=== PATIENT | female | born 1950 | race Caucasian/White ===

== ENCOUNTER 2018-12-03 13:36 | Emergency (ER) | payer OTHER, MEDICARE ==
[2018-12-03] MEDS ORDERED: NS 1,000 ML IV ONE (13:42)
[2018-12-03 13:49] LABS: PLATELET COUNT 238 10^3/uL (150-400)
--- NOTE | 2018-12-03 14:03 | EDPHY ---
H & P Time Seen by Provider: 12/03/18 14:01 HPI/ROS: CHIEF COMPLAINT: Presyncope HISTORY OF PRESENT ILLNESS: The patient is brought to the emergency department with a sensation of presyncope. She reportedly was at [employer] today and was becoming anxious and somewhat agitated. She reports that she did not have much to eat or drink. She has a history of subjective "hypoglycemia" and reported this to fellow [employer] goers. She was given some apple juice prior to transport to the hospital. The patient was noted to have a normal blood sugar by EMS. The patient has a history of a thoracic aortic aneurysm which is stable in being followed. The patient denies any complaints of acute intrascapular pain. She does feel slightly anxious. The patient has sensitivities to multiple antibiotics. She is also very sensitive to benzodiazepines. The patient denies any headache, numbness, fever, cough, congestion or infectious complaints. REVIEW OF SYSTEMS: A comprehensive 10 point review of systems is otherwise negative aside from elements mentioned in the history of present illness. Source: Patient Exam Limitations: No limitations - Medical/Surgical History Other PMH: Past medical history: Thoracic aortic aneurysm, anxiety, CVID - Family History Significant Family History: No pertinent family hx - Physical Exam Exam: General Appearance: Alert, anxious, no acute distress Eyes: Pupils equal and round no pallor or injection ENT, Mouth: Mucous membranes moist Respiratory: There are no retractions, lungs are clear to auscultation Cardiovascular: Regular rate and rhythm Gastrointestinal: Abdomen is soft and nontender, no masses, bowel sounds normal Neurological: A&O, normal motor function, normal sensory exam, normal cranial nerves Skin: Warm and dry, no rashes Musculoskeletal: Neck is supple nontender Extremities: symmetrical, full range of motion Constitutional: Initial Vital Signs Temperature (C) 36.6 C 12/03/18 13:47 Heart Rate 65 12/03/18 13:47 Respiratory Rate 41 H 12/03/18 13:47 Blood Pressure 189/117 H 12/03/18 13:47 O2 Sat (%) 100 12/03/18 13:47 O2 Delivery Mode Room Air Allergies/Adverse Reactions: fluoxetine [From Prozac] Allergy (Verified 12/03/18 14:03) Penicillins Allergy (Verified 12/03/18 14:03) ciprofloxacin Adverse Reaction (Verified 12/03/18 14:03) diphenhydramine [From Benadryl] Adverse Reaction (Verified 12/03/18 14:03) envrionmental Allergy (Uncoded 12/03/18 14:03) narcotics Adverse Reaction (Uncoded 12/03/18 14:03) Home Medications: Medication Instructions Recorded Albuterol 12/03/18 Ativan 12/03/18 Gabapentin 12/03/18 PRISTIQ 12/03/18 Privigen 10 gm/100 ml (*) 12/03/18 Spiriva Handihaler 12/03/18 Medical Decision Making - Diagnostics EKG Interpretation: EKG: Complete interpretation has been separately recorded in the [facility] archive. Summary impression: Sinus rhythm, rate 58 ED Course/Re-evaluation: ED course: Patient arrives by paramedics with stable vital signs after an episode of presyncope. She is noted to be neurologically intact upon arrival. The patient has stable vital signs. Her EKG demonstrates no evidence of arrhythmia. The patient had an IV established. She received a L of normal saline. Patient's laboratory studies are unremarkable. Troponin is normal. She has no evidence of a metabolic derangement. The patient will be discharged home at 2:30 p.m.. She is advised to follow up with her primary care provider as scheduled. She should return to the ED for any chest pain, difficulty breathing or other concerns. Differential Diagnosis: Differential diagnosis considered includes arrhythmia, anemia, dehydration, metabolic abnormality, acute coronary syndrome - Data Points Laboratory Results: Laboratory Results 12/03/18 13:44 12/03/18 13:44 12/03/18 12/03/18 12/03/18 13:49 13:44 13:44 WBC 7.38 10^3/uL 10^3/uL (3.80-9.50) RBC 5.12 10^6/uL 10^6/uL (4.18-5.33) Hgb 15.4 g/dL g/dL (12.6-16.3) Hct 41.5 % % (38.0-47.0) MCV 81.1 fL L fL (81.5-99.8) MCH 30.1 pg pg (27.9-34.1) MCHC 37.1 g/dL H g/dL (32.4-36.7) RDW 12.7 % % (11.5-15.2) Plt Count 238 10^3/uL 10^3/uL (150-400) MPV 11.2 fL fL (8.7-11.7) Neut % (Auto) 68.0 % % (39.3-74.2) Lymph % (Auto) 24.4 % % (15.0-45.0) Bonner % (Auto) 6.9 % % (4.5-13.0) Eos % (Auto) 0.0 % L % (0.6-7.6) Baso % (Auto) 0.4 % % (0.3-1.7) Nucleat RBC Rel Count 0.0 % % (0.0-0.2) Absolute Neuts (auto) 5.02 10^3/uL 10^3/uL (1.70-6.50) Absolute Lymphs (auto) 1.80 10^3/uL 10^3/uL (1.00-3.00) Absolute Monos (auto) 0.51 10^3/uL 10^3/uL (0.30-0.80) Absolute Eos (auto) 0.00 10^3/uL L 10^3/uL (0.03-0.40) Absolute Basos (auto) 0.03 10^3/uL 10^3/uL (0.02-0.10) Absolute Nucleated RBC 0.00 10^3/uL 10^3/uL (0-0.01) Immature Gran % 0.3 % % (0.0-1.1) Immature Gran # 0.02 10^3/uL 10^3/uL (0.00-0.10) Sodium 136 mEq/L mEq/L (135-145) Potassium 4.8 mEq/L mEq/L (3.5-5.2) Chloride 100 mEq/L mEq/L (97-110) Carbon Dioxide 22 mEq/l mEq/l (22-31) Anion Gap 14 mEq/L mEq/L (6-14) BUN 19 mg/dL mg/dL (7-23) Creatinine 0.9 mg/dL mg/dL (0.6-1.0) Estimated GFR > 60 Glucose 121 mg/dL H mg/dL (70-100) Calcium 10.5 mg/dL H mg/dL (8.5-10.4) POC Troponin I 0.00 ng/mL ng/mL (0.00-0.08) Medications Given: Discontinued Medications Sodium Chloride (Ns) 1,000 mls @ 0 mls/hr IV EDNOW ONE; Wide Open PRN Reason: Protocol Stop: 12/03/18 13:43 Last Admin: 12/03/18 14:08 Dose: 1,000 mls Point of Care Test Results: Chemistry 12/03/18 13:49 POC Troponin I 0.00 ng/mL ng/mL (0.00-0.08) Departure - Departure Disposition: Home, Routine, Self-Care Clinical Impression: Pre-syncope Condition: Good Instructions: Near Syncope (ED) Additional Instructions: 1. Please try to increase your caloric and liquid intake as dehydration may have contributed to your symptoms today. 2. Return to the ED for any markedly worsening symptoms or other concerns. 3. Follow up with your primary care provider as scheduled.
--- NOTE | 2018-12-03 14:04 | CPEKG ---
Test Reason : OPEN Blood Pressure : / mmHG Vent. Rate : 058 BPM Atrial Rate : 057 BPM P-R Int : 147 ms QRS Dur : 096 ms QT Int : 434 ms P-R-T Axes : 050 004 069 degrees QTc Int : 427 ms Sinus rhythm Minimal ST elevation, inferior leads Confirmed by Diego Saenz ([id number]) on 12/03/2018 2:03:48 PM Referred By: Diego Saenz Confirmed By:Diego Saenz
[2018-12-03 15:29] VITALS: BP 174/80
== END 2018-12-03 15:33 | disposition home or self-care (01) ==
LOC: EDUNIT#
DX: R55 Syncope and collapse (principal); E86.9 Volume depletion, unspecified
CPT/HCPCS: 84484-ER

== ENCOUNTER 2018-12-19 12:31 | Inpatient (IN) | payer OTHER, MEDICARE ==
[2018-12-19] MEDS ORDERED: ONDANSETRON 4 MG/2 ML VIAL IVP ONE (12:34)
[2018-12-19] MEDS ORDERED: NS 500 ML IV ONE (12:34)
[2018-12-19] MEDS ORDERED: IOHEXOL 350mgI/ML (OMNIPAQUE) 150 ML BTL IV ONE (12:38)
--- NOTE | 2018-12-19 12:42 | EDPHY ---
H & P Time Seen by Provider: 12/19/18 12:34 HPI/ROS: HPI Headache, confusion. Stroke alert. 67-year-old female by ambulance. This patient was at her physical therapy class. She started complaining of a headache at 11:50 a.m.. Staff there noted that she had slurred speech. She was complaining of left-sided facial numbness and generalized weakness. On presentation to the emergency department, she is responding to questions appropriately. I do not appreciate dysarthria or receptive, expressive a aphasia. She is still complaining of some numbness to the left side of her face and a headache which she describes as being on the top of her head. ROS: Constitutional: No fever, no chills. No weakness. Eyes: No discharge. No changes in vision. ENT: No sore throat. No nasal congestion or rhinorrhea. Respiratory: No cough. No shortness of breath. Cardiac: No chest pain, no palpitations. Gastrointestinal: No abdominal pain, no vomiting, no diarrhea. Genitourinary: No hematuria. No dysuria or increased frequency with urination. Musculoskeletal: No back pain. No neck pain. No myalgias or arthralgias. Skin: No rashes. Neurological: As above. Past medical history: Thoracic aortic aneurysm, anxiety, hypertension. Social history: She is here by herself. Nonsmoker. No alcohol. Physical Exam: General Appearance: Alert, she appears uncomfortable, she is complaining of a headache.. This patient is responding to questions appropriately and in full sentences. This patient appears well-hydrated and well-nourished. Eyes: Pupils equal and round no pallor or injection. No lid edema, erythema or injection. ENT, Mouth: Mucous membranes are moist. The pharyngeal tissues are unremarkable. No edema or swelling. No asymmetry suggestive of abscess. No erythema or exudates. Respiratory: There are no retractions, lungs are clear to auscultation with good air movement bilaterally. Cardiovascular: Regular rate and rhythm. No murmur. Gastrointestinal: Abdomen is soft and nontender, no masses, bowel sounds normal. No focal tenderness at McBurney's point. No Ogden sign. Neurological: Motor sensory function is grossly intact. Cranial nerves are normal except for some decreased to sensation to light touch left side of her face lower. Cerebellar function is normal. Skin: Warm and dry, no rashes. Musculoskeletal: Neck is supple and nontender. Extremities are symmetrical. All joints range without pain or impingement. Psychiatric: No agitation. No depression. Database: EKG: EKG time is 12:59 p.m.; EKG shows a narrow complex normal sinus rhythm with a ventricular rate of 52. The MO, QRS, QT intervals are within normal limits. There are no ST-T wave changes indicative of ischemic or injury pattern. No evidence of right heart strain. Interpreted by me. Imaging: CT head without contrast: There is a small left-sided temporal hypodensity of questionable significance. Otherwise this study is normal. Results were discussed with staff radiologist Dr. Owens. CTA of head neck: Negative. Results discussed with staff radiologist Dr. Adin Patel. Procedures: Emergency department course: 12:35 p.m., I evaluated the patient on the [facility]. Feel that CVAs unlikely. She is clearly improving. I do not think she has a tPA candidate at this time. She was sent for CT imaging directly from the hallway. 12:55 p.m., the patient has returned to her room. She still complains of a headache but states that it is improved now. Repeat neurologic Assessment is nonfocal. She is asking for some medication for the headache. She states that she has an allergy to Reglan and to narcotics but is not sure which narcotics. She will be given 10 mg of IV Decadron and 30 mg of IV Toradol. 2:30 p.m., the patient was re-evaluated, quality assurance monitor final shows a narrow complex sinus rhythm with ventricular rate of 58. Blood pressure is 165/84. Pulse oximetry 100%. She states that she still has a mild headache. She still complains of some numbness involving the left side of her face just adjacent to her mouth. I explained to her we will give her a small dose of morphine to treat her headache. I did discuss her presentation with the hospitalist, Dr. Miner. Plan will be to get an MRI of her brain without contrast. I feel if this is normal and does not show any evidence of ischemic change she can be discharged to home. 3:00 p.m., MRI pending. Care turned over to Dr. Bradley. Differential Diagnosis: The differential diagnosis on this patient includes but is not limited to migraine headache syndrome, CVA, TIA. This represents a partial list of diagnoses considered. These considerations are based on history, physical exam , past history, reassessment and diagnostic testing. Smoking Status: Never smoked Constitutional: Initial Vital Signs Temperature (C) 36.7 C 12/19/18 12:53 Heart Rate 61 12/19/18 12:53 Respiratory Rate 18 12/19/18 12:53 Blood Pressure 178/91 H 12/19/18 12:53 O2 Sat (%) 99 12/19/18 12:53 O2 Delivery Mode Room Air Allergies/Adverse Reactions: ciprofloxacin Allergy (Verified 12/19/18 19:30) diphenhydramine [From Benadryl] Allergy (Verified 12/19/18 19:30) fluoxetine [From Prozac] Allergy (Verified 12/19/18 12:53) Penicillins Allergy (Verified 12/19/18 12:53) envrionmental Allergy (Uncoded 12/03/18 14:03) narcotics Allergy (Uncoded 12/19/18 19:30) Home Medications: Medication Instructions Recorded Albuterol [Proventil Inhaler HFA 1 - 2 puffs IH Q4H PRN 12/19/18 (*)] Desvenlafaxine Succinate [Pristiq 100 mg PO DAILY 12/19/18 ER] Gabapentin [Neurontin 300 MG (*)] 300 mg PO HS 12/19/18 Immune Globulin [Privigen 10 30 gm IV Q30D 12/19/18 gm/100 ml (*)] Psyllium Husk [Fiber] 0.8 gm PO HS 12/19/18 acetaZOLAMIDE [Diamox 250 mg (RX)] 125 mg PO BID PRN 12/19/18 Medical Decision Making - Data Points Laboratory Results: Laboratory Results 12/19/18 12:35 12/19/18 12:35 Medications Given: Acetaminophen (Tylenol) 1,000 mg PO Q8H MICHAEL Stop: 06/17/19 19:29 Last Admin: 12/20/18 05:32 Dose: 1,000 mg Enoxaparin Sodium (Lovenox) 40 mg SC DAILY MICHAEL Stop: 06/18/19 08:59 Last Admin: 12/20/18 09:16 Dose: 40 mg Ketorolac Tromethamine (Toradol) 30 mg IVP Q6HRS PRN PRN Reason: Pain, Moderate Stop: 12/24/18 19:26 Last Admin: 12/20/18 09:15 Dose: 30 mg Losartan Potassium (Cozaar) 25 mg PO DAILY MICHAEL Stop: 06/17/19 19:44 Last Admin: 12/20/18 09:16 Dose: 25 mg Morphine Sulfate (Morphine) 1 - 2 mg IVP Q1HR PRN PRN Reason: Pain, Severe Unable to Take PO Stop: 12/29/18 19:26 Last Admin: 12/20/18 01:06 Dose: 2 mg Ondansetron HCl (Zofran) 4 mg IVP Q4HRS PRN PRN Reason: Nausea/Vomiting, Can't Take PO Stop: 06/17/19 19:26 Last Admin: 12/20/18 05:32 Dose: 4 mg Discontinued Medications Acetaminophen (Tylenol) 650 mg PO EDNOW ONE Stop: 12/19/18 16:45 Last Admin: 12/19/18 16:46 Dose: 650 mg Dexamethasone (Decadron Injection) 10 mg IVP EDNOW ONE Stop: 12/19/18 12:58 Last Admin: 12/19/18 13:02 Dose: 10 mg Sodium Chloride (Ns) 500 mls @ 500 mls/hr IV EDNOW ONE PRN Reason: Protocol Stop: 12/19/18 13:33 Last Admin: 12/19/18 12:58 Dose: 500 mls Ketorolac Tromethamine (Toradol) 30 mg IVP EDNOW ONE Stop: 12/19/18 12:58 Last Admin: 12/19/18 13:02 Dose: 30 mg Morphine Sulfate (Morphine) 2 mg IVP EDNOW ONE Stop: 12/19/18 14:44 Last Admin: 12/19/18 15:10 Dose: 2 mg Ondansetron HCl (Zofran) 4 mg IVP EDNOW ONE Stop: 12/19/18 12:35 Last Admin: 12/19/18 12:58 Dose: 4 mg Point of Care Test Results: Chemistry 12/19/18 12:37 POC Sodium 136 mEq/L mEq/L (135-145) POC Potassium 4.3 mEq/L mEq/L (3.3-5.0) POC Chloride 99 mEq/L mEq/L (97-110) POC Total CO2 22 mEq/L mEq/L (22-31) POC BUN 13 mg/dL mg/dL (7-23) POC Creatinine 0.8 mg/dL mg/dL (0.6-1.0) POC Glucose 97 mg/dL mg/dL (70-100) ISTAT H&H 12/19/18 12:37 POC Hgb 14.6 gm/dL gm/dL (12.6-16.3) POC Hct 43 % % (38-47) Departure - Departure Disposition: [facility] Inpatient Acute Clinical Impression: Headache, Left facial numbness Condition: Good
[2018-12-19] MEDS ORDERED: DEXAMETHASONE 10 MG/ML VIAL IVP ONE (12:57)
[2018-12-19] MEDS ORDERED: KETOROLAC 30 MG/1 ML SDV IVP ONE (12:57)
[2018-12-19 13:03] LABS: PLATELET COUNT 240 10^3/uL (150-400)
[2018-12-19 13:27] LABS: INR 0.99 (0.83-1.16); PROTIME(PATIENT) 13.3 SEC (12.0-15.0)
[2018-12-19] MEDS ORDERED: ACETAMINOPHEN 325 MG TAB PO ONE (16:44)
--- NOTE | 2018-12-19 19:17 | PDGENHP ---
History and Physical - Chief Complaint Headache, confusion - History of Present Illness HPI: This is a 67 y/o female with history of hypertension, LIMA w/cpap, thoracic AA, and asthma presenting to the ER via ambulance for a stroke alert. She was at a physical therapy session this morning for her left shoulder bursitis when around 11:50AM she c/o headache. The staff noticed slurred speech and she c/o left-sided facial numbness and generalized weakness. Multiple imaging (Brain MRI, Neck/Head CTA, Head CT) was unremarkable for stroke or anomalies except: known and per pt stable dilated ascending aorta (4.3 cm) and inflammation involving left mastoids with some fluid tracking anteromedially to the left inner ear. This is my first time evaluating the pt. She is seen in no distress lying supine in the ED. She is A&Ox3, states she feels confused, neuros are intact. She continues to c/o headache however has lessened to 5/10 with ER medications of toradol, morphine, dexamethasone, and tylenol. Feels like pressure. She reports her BP has been elevated for the last 2 weeks and her PCP was thinking about placing her on Losartan. Denies vision changes. Still experiencing mild left sided facial numbness mainly to her upper lip. Endorses nausea, no vomiting. She is mildly anxious and became tearful about next steps. PCP: Dr. Yuiner Ventura from [facility] Kitchen Aide: Dr. Yash Antonio from [facility] She is being admitted for observation. Past Medical History 1. Thoracic Aortic Aneurysm 2. Anxiety 3. Hypertension 4. ADHD 5. Asthma 6. 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 . 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 She stays in independent living at [facility]. 2. Denies tobacco or illicit drug use. Occasionally drinks wine. History Information - Allergies/Home Medication List Allergies/Adverse Reactions: ciprofloxacin Allergy (Verified 12/19/18 19:30) diphenhydramine [From Benadryl] Allergy (Verified 12/19/18 19:30) fluoxetine [From Prozac] Allergy (Verified 12/19/18 12:53) Penicillins Allergy (Verified 12/19/18 12:53) envrionmental Allergy (Uncoded 12/03/18 14:03) narcotics Allergy (Uncoded 12/19/18 19:30) Home Medications: Albuterol 12/03/18 [Last Taken Unknown] Ativan 12/03/18 [Last Taken Unknown] Gabapentin 12/03/18 [Last Taken Unknown] PRISTIQ 12/03/18 [Last Taken Unknown] Privigen 10 gm/100 ml (*) 12/03/18 [Last Taken Unknown] Spiriva Handihaler 12/03/18 [Last Taken Unknown] I have personally reviewed and updated: family history, medical history, social history, surgical history Past Medical History: See HPI list - Surgical History Additional surgical history: See HPI list - Family History Additional family history: Father at 91 y/o - CHF, multiple TIAs. Mother at 90 y/0 - A-fib, CHF - Social History Smoking Status: Never smoked Alcohol Use: Occasionally Drug Use: None Review of Systems Review of Systems: ROS: 10pt was reviewed & negative except for what was stated in HPI & below Constitutional: Reports: malaise, weakness EENMT: Reports: no symptoms Respiratory: Reports: no symptoms Gastrointestinal: Reports: nausea Genitourinary: Reports: no symptoms Muscolosketal: Reports: no symptoms Skin: Reports: no symptoms Neurological: Reports: headache, numbness, weakness Hematologic/Lymphatic: Reports: no symptoms Immunologic/Allergy: Reports: other (See allergy list) Physical Exam Physical Exam: Lab data and imaging were reviewed. Case discussed with admitting physician, Dr. Pito Miner Temp Pulse Resp BP Pulse Ox 36.7 C 67 16 144/83 H 97 12/19/18 12:53 12/19/18 17:30 12/19/18 17:30 12/19/18 17:30 12/19/18 17:30 Constitutional: no apparent distress, appears nourished, other (Mildly anxious in appearance, teaful at end of evaluation.) Eyes: PERRL, anicteric sclera, EOMI Ears, Nose, Mouth, Throat: moist mucous membranes, hearing normal, ears appear normal, no oral mucosal ulcers Cardiovascular: regular rate and rhythym, no murmur, rub, or gallop, No edema Peripheral Pulses: 2+: dorsalis-pedis (R) (Radial 2+), dorsalis-pedis (L) ( Radial 2+) Respiratory: expiratory wheeze (Bilateral lower bases) Gastrointestinal: normoactive bowel sounds, soft, non-tender abdomen, no palpable masses Genitourinary: no bladder fullness, no bladder tenderness Skin: warm, normal color, no rashes or abrasions, no fluctuance, no induration, No mottled Musculoskeletal: full muscle strength, no muscle tenderness, normal joint ROM, no joint effusions Neurologic: AAOx3, numbness (Lingering left-sided facial numbness; tactile sensation present but decreased to upper lip) Psychiatric: not encephalopathic, thought process linear, anxious Lymph, Heme, Immunologic: no cervical LAD, no supraclavicular LAD Lab Data & Imaging Review 12/19/18 12:35 12/19/18 12:35 WBC 5.70 10^3/uL (3.80-9.50) 12/19/18 12:35 RBC 5.04 10^6/uL (4.18-5.33) 12/19/18 12:35 Hgb 15.4 g/dL (12.6-16.3) 12/19/18 12:35 POC Hgb 14.6 gm/dL (12.6-16.3) 12/19/18 12:37 Hct 41.7 % (38.0-47.0) 12/19/18 12:35 POC Hct 43 % (38-47) 12/19/18 12:37 MCV 82.7 fL (81.5-99.8) 12/19/18 12:35 MCH 30.6 pg (27.9-34.1) 12/19/18 12:35 MCHC 36.9 g/dL (32.4-36.7) H 12/19/18 12:35 RDW 12.6 % (11.5-15.2) 12/19/18 12:35 Plt Count 240 10^3/uL (150-400) 12/19/18 12:35 MPV 10.9 fL (8.7-11.7) 12/19/18 12:35 Neut % (Auto) 57.8 % (39.3-74.2) 12/19/18 12:35 Lymph % (Auto) 33.9 % (15.0-45.0) 12/19/18 12:35 Gaines % (Auto) 7.4 % (4.5-13.0) 12/19/18 12:35 Eos % (Auto) 0.2 % (0.6-7.6) L 12/19/18 12:35 Baso % (Auto) 0.5 % (0.3-1.7) 12/19/18 12:35 Nucleat RBC Rel Count 0.0 % (0.0-0.2) 12/19/18 12:35 Absolute Neuts (auto) 3.30 10^3/uL (1.70-6.50) 12/19/18 12:35 Absolute Lymphs (auto) 1.93 10^3/uL (1.00-3.00) 12/19/18 12:35 Absolute Monos (auto) 0.42 10^3/uL (0.30-0.80) 12/19/18 12:35 Absolute Eos (auto) 0.01 10^3/uL (0.03-0.40) L 12/19/18 12:35 Absolute Basos (auto) 0.03 10^3/uL (0.02-0.10) 12/19/18 12:35 Absolute Nucleated RBC 0.00 10^3/uL (0-0.01) 12/19/18 12:35 Immature Gran % 0.2 % (0.0-1.1) 12/19/18 12: Immature Gran # 0.01 10^3/uL (0.00-0.10) 12/19/18 12:35 PT 13.3 SEC (12.0-15.0) 12/19/18 13:03 INR 0.99 (0.83-1.16) 12/19/18 13:03 APTT 28.5 SEC (23.0-38.0) 12/19/18 13:03 POC Sodium 136 mEq/L (135-145) 12/19/18 12:37 Sodium 134 mEq/L (135-145) L 12/19/18 12:35 POC Potassium 4.3 mEq/L (3.3-5.0) 12/19/18 12:37 Potassium 5.3 mEq/L (3.5-5.2) H 12/19/18 12:35 POC Chloride 99 mEq/L (97-110) 12/19/18 12:37 Chloride 100 mEq/L (97-110) 12/19/18 12:35 Carbon Dioxide 23 mEq/l (22-31) 12/19/18 12:35 POC Total CO2 22 mEq/L (22-31) 12/19/18 12:37 Anion Gap 11 mEq/L (6-14) 12/19/18 12:35 POC BUN 13 mg/dL (7-23) 12/19/18 12:37 BUN 14 mg/dL (7-23) 12/19/18 12:35 Creatinine 0.8 mg/dL (0.6-1.0) 12/19/18 12:35 POC Creatinine 0.8 mg/dL (0.6-1.0) 12/19/18 12:37 Estimated GFR > 60 12/19/18 12:35 Glucose 93 mg/dL (70-100) 12/19/18 12:35 POC Glucose 97 mg/dL (70-100) 12/19/18 12:37 Calcium 10.2 mg/dL (8.5-10.4) 12/19/18 12:35 Assessment & Plan Plan: This is a 67 y/o female with history of HTN, LIMA, thoracic AA, and anxiety presenting with stroke-like symptoms of headache, slurred speech and confusion during her physical therapy session this afternoon. Upon presentation to the ED , she was showing signs of headache but no other said symptoms and also subjectively c/o left sided facial numbness which seems to be improving as the day goes on. Differential diagnoses are the following but not limited to: CVA, TIA, Malone's Palsy. She is hemodynamically stable currently. #TIA vs CVA: acute work-up is negative for any significant findings. -Cont tele monitoring -Initiated TIA protocol with NIH stroke scale QS and one-time RN minor macias -Neurology consulted. Possible evaluation tomorrow if pt is still in hospital. Otherwise, she should f/u as outpatient. She will be placed on a 90 day driving restriction. -First troponin negative 0.00. Checking trop x 1. -Checking A1c and lipid panel -Echo complete with bubble pending -Monitor electrolytes, CBC/BMP tomorrow -[employer]PER[employer]/OT to evaluate and treat -Treat LIPSCOMB with pain medications PO/IVP PRN; use hot/cold packs PRN #Thoracic AA: per pt, stable since one year ago. Echo pending. Cont tele monitoring. #CVID: receives monthly infusion of Privigen. Last one was 12/06/18. #Anxiety/Depression: on pristig, ativan, and gabapentin Diet: Regular after passes swallow eval Code: Limited VTE ppx: Lovenox subq Dispo: Admit to obs
[2018-12-19] MEDS ORDERED: ONDANSETRON DISINTEGRATING 4 MG TAB PO PRN (19:27)
[2018-12-19] MEDS ORDERED: ONDANSETRON 4 MG/2 ML VIAL IVP PRN (19:27)
--- NOTE | 2018-12-19 19:41 | HOSPPROG ---
Hospitalist Progress Note Assessment/Plan: I have personally seen and evaluated Suellen Sanchez. I agree with the assessment and plan as outlined by PAChuyita, in a separate note. Objective: Vital Signs Temp Pulse Resp BP Pulse Ox 36.7 C 67 16 144/83 H 97 12/19/18 12:53 12/19/18 17:30 12/19/18 17:30 12/19/18 17:30 12/19/18 17:30 PT 13.3 SEC (12.0-15.0) 12/19/18 13:03 INR 0.99 (0.83-1.16) 12/19/18 13:03 ICD10 Worksheet Patient Problems: Problems Problem Status Onset Headache Acute Left facial numbness Acute
[2018-12-19] MEDS: ACETAMINOPHEN 500 MG TAB PO SCH (21:56)
[2018-12-19] MEDS: LOSARTAN POTASSIUM 25 MG TAB PO SCH (21:56)
[2018-12-20] MEDS: KETOROLAC 30 MG/1 ML SDV IVP PRN ×2 (01:06→09:15)
[2018-12-20] MEDS: ACETAMINOPHEN 500 MG TAB PO SCH ×3 (05:32→20:30)
[2018-12-20] MEDS: LOSARTAN POTASSIUM 25 MG TAB PO SCH (09:16)
[2018-12-20] MEDS: ENOXAPARIN 40 MG/0.4 ML SYR SC SCH (09:16)
--- NOTE | 2018-12-20 12:15 | GCON ---
[f rep st] CONSULTATION NEUROLOGIC CONSULTATION REFERRING PHYSICIAN: Dr. Miner HISTORY: The patient is a 67-year-old woman, whom I am asked to see in neurologic consultation regar ding head pressure and pain and some paresthesias in the left face predominantly. The history is obt ained from reviewing emergency room records, as well as the history and physical and direct discussio ns with the patient. The symptoms probably began December 03, when she started having a feeling of he adache in a nonspecific diffuse pattern, which was mild or moderate, and not associated with any othe r particular symptoms initially. Three days later, she reports getting her IVIG, which she gets for variable immune deficiency syndrome and this exacerbated her headache in the same diffuse pattern. S he has sometimes felt a little bit dizzy or nauseated. She was not having any focal neurologic compl aints at that time. She was going to physical therapy yesterday and the description is that she was complaining of headache around 11:50 in the morning and the therapist thought her speech seemed a lit tle bit slurred, and she was also feeling a numb phenomenon in her left face and just generally weak all over. When she came to the emergency department, she was answering questions appropriately and n othing specific was identified, in terms of dysarthria or aphasia by the emergency room physician who was seeing her. She had a head CT showing perhaps a subtle abnormality in the left temporal lobe. A subsequent brain MRI does not show any evidence of stroke or mass lesions. CT angiogram head/neck are unremarkable. To help her with the complaint of headache, she got 10 mg of Decadron and 30 mg of IV Toradol, and that was somewhat helpful. She was still feeling abnormal sensations around her lef t lip predominantly and a little bit toward the left periorbital region. No double vision. She subs equently had routine labs with a white count of 5000, normal hematocrit and normal INR. Chemistries were unremarkable. Since admission, labs continue to be unremarkable, except for mild elevation of L DL at 144. She was then admitted to observation status to the hospitalist service and evaluated by Tereso Alejandra. She made comment on the finding on the scan that there might be some inflammation in the left mastoid area with some fluid tracking anteromedially to the left inner ear region. The patient told me that many years ago she had left mastoid surgery for some mastoid-related problem and does have a history of some TMJ-type symptoms. At the time of that evaluation, she seemed to be able to communicate effectively, but was still havin g the subjective complaint of left facial numbness and decrease around the left upper lip. This morning, the patient tells me that she still feels sluggish and generally weak and slow in all o f her activities, including her speaking and says this is not her normal communication. The head pre ssure is in the 3/10 or 4/10 range. She still describes the left facial paresthesia, or numb feeling . 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 She is ma rried, but her has advanced disease and that makes her feel very stressed. She deals with an xiety and depression at times. HOME MEDICATIONS: Albuterol, lorazepam, gabapentin, Pristiq, and intermittent use of immunoglobulin. SOCIAL HISTORY: No smoking. Rare alcohol. REVIEW OF SYSTEMS: She does not describe severe neck pain. She has not had any fever. She said she felt a little bit flushed yesterday. No changes in bowel or bladder function. PHYSICAL EXAM: VITAL SIGNS: Blood pressure is 107/60, pulse 61, respirations 12, temperature 36.6. GENERAL: She is well developed, lying in the bed, no acute distress. NECK: Supple with no bruits or masses, and there is not rigidity or profound pain with head movement passively or voluntarily. N o rash. No carotid bruits. CARDIAC: Regular rate and rhythm. No murmur. NEUROLOGIC: She is awak e and alert and able to communicate and oriented, but she has very slow and deliberate speech and ten ds to be tangential, as well as verbose and circumferential. But, can be redirected easily and ackno wledges that she has a tendency to lose focus. However, she says this is slower than her normal stat e, where she communicates very effectively. HEENT: Pupils are 4 mm and reactive. Extraocular movem ents are intact. No obvious visual field loss. Normal facial movement and strength. The facial sen sation, she says, is about 88% on the left, compared to 100% on the right, for temperature perception . Palate elevates symmetrically and tongue protrudes in the midline. Hearing is preserved. MOTOR: Normal tone. Actual pure power is a little hard to assess, but probably nearly normal in the upper extremities. In the lower extremities, it is more in the 4/5 range proximally, but preserved distall y. Sensation is preserved for temperature and light touch. Reflexes are 3+ and symmetric, but no Ba binski signs. I have also looked at the brain MRI. There is no evidence of any acute stroke. The posterior fossa appears normal. In terms of the deep white matter, there is a little bit of capping of the anterior horn of the lateral ventricles, but no prominent evidence of small-vessel disease or demyelination. There were the changes around the left mastoid, as noted by Radiology, with fluid toward the inner ea r area. IMPRESSION: Patient with NIH Stroke Scale of 1 for the mild left facial numbness or decreased sensor y perception, but that is subtle. Total unit time of 75 minutes. It is hard to know for certain what is explaining this constellation of symptoms, which has really ev olved over the last 2 weeks, starting with head pressure. The fact that she got IVIG 3 days after th e onset of headache is relevant in that that could certainly lead to increasing headache. The IVIG c an certainly be associated with aseptic meningitis syndromes, although I am not feeling compelled to do a spinal fluid analysis at this point. I think it is a low likelihood of bacterial or viral menin gitis. It is hard to know about these fluid changes in the left mastoid/inner ear region, where she has apparently had previous surgery. Whether that is contributing and precipitating some left trigem inal nerve dysfunction with local inflammatory changes is hard to say, but I am in favor of this not representing TIA or stroke and more likely an inflammatory syndrome with headache and associated mild left trigeminal nerve dysfunction on a peripheral basis. Without any fever, it is hard to justify a ny empiric antibiotics. The changes in the mastoid region, however, we should consider perhaps more detailed analysis of that. In the short term, I am going to recommend adding no new medications. He r global slowness of cognition is less of a delirium than simply a slow processing and very nonspecif ic. I will check a sedimentation rate and CRP. She says she has had a bad reaction when she has had prednisone in the past, making her very hyperactive. So we will try not to use that unless absolute ly necessary. We did not see any evidence of vasculitis on the CT angiogram. Echocardiogram has bee n performed, and will look for any anomalies, including PFO, but it is hard to link this to a cardiac situation at this stage. I will continue to follow along, but also recommend physical therapy, occupational and speech therapy . She is not ready to be discharged yet because of the uncertainty of what is happening in her globa l dysfunction from a cognitive and physical standpoint right now. /[id number]/MODL
--- NOTE | 2018-12-20 12:20 | ECHO ---
[email or web address] [address] [address] Main: [phone] Fax: Transthoracic Echocardiogram Name: QUIRINO CANALES MR#: [id number] Study Date: 12/20/2018 Study Time: 09:41 AM Date of : 1950 Age: 67 year(s) Height: 157.5 cm (62 in.) Weight: 68.04 kg (150 lb.) BSA: 1.69 m2 Gender: Female Examination: Echo with Agitated Saline Indication: suspected TIA Image Quality: Adequate Contrast: Requested by: Radha Alejandra BP: 107 mmHg/60 mmHg Heart Rate: Rhythm: Indication: suspected TIA Procedure Staff Sand Mixer Machine: Mariella Paniagua RDCS Reading Physician: Zane Bain MD Requesting Provider: Conclusions: Normal size left ventricle. Normal global systolic LV function. EF is 60 %. No regional wall motion abnormality. Unable to assess diastolic dysfunction. The left atrium is normal in size. An agitated saline study was performed and was negative for intracardiac shunting. Mild mitral valve regurgitation is present. Moderate aortic valve regurgitation is present. Mild tricuspid regurgitation is present. Right ventricular systolic pressure measures 30mmHg. Dilated ascending aorta measuring 4.2 cm. No TTE evidence of cardiac source for embolism. Consider ESTRADA if clinically indicated. Measurements: Chambers Valvular Assessment AV/MV Valvular Assessment TV/PV Normal Normal Normal Name Value Range Name Value Range Name Value Range Ao Annalee (2D): 2.9 cm (1.4 cm-2.6 AV Vmax: 1.35 m/s (1 m/s-1.7 TR Vmax: 2.52 mm/s ( - ) cm) m/s) TR PGmax: 25 mmHg ( - ) IVSd (2D): 0.9 cm (0.6 cm-1.1 AV maxP mmHg ( - ) syst. PAP: 30 mmHg ( - ) cm) AV meanP mmHg ( - ) PV Vmax: 0.81 m/s (0.6 m/s-0.9 LVDd (2D): 4.4 cm (3.9 cm-5.3 HARMONY (VTI): 2.4 cm ( - ) m/s) cm) AR (PHT): 599 ms ( - ) PV PGmax: 3 mmHg ( - ) LVDs (2D): 3.0 cm (2.1 cm-4 MV E Vmax: 0.54 m/s ( - ) cm) MV A Vmax: 0.46 m/s ( - ) LVPWd (2D): 0.8 cm ( - ) MV E/A: 1.17 ( - ) LVOTd 1.9 cm 1.9 cm mm MV PHT: 0.099 s ( - ) LVEF (2D): 60 (>=54 %) MVA (PHT): 2.2 s ( - ) Patient: QUIRINO CANALES Study Date: 12/20/2018 Page 1 of 2 09:41 AM RVDd(2D): 2.3 cm (1.9 cm-3.8 cmmm) Continued Measurements: Chambers Valvular Assessment AV/MV Valvular Assessment TV/PV Name Value Name Value Name Value LADs: 2.9 cm MV DecTime: 299 m/s CVP (est.): 5 mmHg LADs Lon.5 cm MV E' Septal: 0.08 m/s LA Area: 19.6 cm2 MV E/E' Septal: 7.10 LA Volume: 59 ml MV E/E' Lateral: 7.90 LA Volume Index: 34.9 ml/m2 AR Vmax: 3.90 cm/s RA Area: 17.8 cm2 Additional Vessels Name Value Ao Ascendin.2 cm Findings: Left Ventricle: Normal size left ventricle. No LV hypertrophy. Normal global systolic LV function. EF is 60 %. No regional wall motion abnormality. Unable to assess diastolic dysfunction. Right Ventricle: Normal size right ventricle. Normal RV function. Left Atrium: The left atrium is normal in size. An agitated saline study was performed and was negative for intracardiac shunting. Right Atrium: The right atrium is normal in size. Mitral Valve: The mitral valve is normal in appearance and function. Mild mitral valve regurgitation is present. No mitral stenosis is present. Aortic Valve: The aortic valve is tri-leaflet. Moderate aortic valve regurgitation is present. No aortic valve stenosis is present. Tricuspid Valve: The tricuspid valve is normal in appearance and function. Mild tricuspid regurgitation is present. The pulmonary artery pressure is normal. Right ventricular systolic pressure measures 30mmHg. Pulmonic Valve: The pulmonic valve is normal in appearance and function. Mild pulmonic valve regurgitation is noted. Aorta: The aorta is normal. Normal size aortic root measuring 2.9 cm. Dilated ascending aorta measuring 4.2 cm. Pericardium: No pericardial effusion. Exam Comments: Patient difficulty tolerating pressure for apical imaging -- apical imaging done mostly off axis. (No Signature Object) Patient: QUIRINO CANALES Study Date: 12/20/2018 Page 2 of 2 09:41 AM [id number]
--- NOTE | 2018-12-20 12:41 | ASMTCASEMG ---
Living Arrangements What is your living Answers: Alone arrangement? Who do you live with? Type Of Residence What kind of residence do Answers: Apartment you live in? 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 Patient has a hx of HTN, LIMA, thoracic AA and anxiety who presents with stroke-like symptoms of headache, slurred speech and confusion. Patient here on observation status currently. PT/OT/SUPERINTENDENT DIVISION have been ordered. D/C plan TBD. CM will follow. Date Signed: 12/20/2018 12:41 PM Electronically Signed By:Candi Lubin LCSW
[2018-12-20] MEDS ORDERED: ALBUTEROL 60 PUFFS/8 GM MDI IH PRN (15:03)
[2018-12-20] MEDS ORDERED: acetaZOLAMIDE 250 MG TAB PO PRN (15:03)
--- NOTE | 2018-12-20 15:10 | HOSPPROG ---
Hospitalist Progress Note Assessment/Plan: 67 yo F w CVID, htn here w L facial numbness L facial numbness: uncertain etiology agree that not a neurovascular event inflammatory marker flat h/o remote ear surgery follow check resp viral panel no vesicular lesions to suggest HSV hypoxia: remarkable desat, questionable quality data check cxr htn: continue meds anxiety: noted, follow likely contributing to current meds dispo: change to inpt Subjective: case d/w dr acosta. still L facial numbness. desatted to 66% after ambulation in the setting of non stop talking Objective: Vital Signs Temp Pulse Resp BP Pulse Ox 36.6 C 57 L 12 107/60 66 L 12/20/18 08:56 12/20/18 11:55 12/20/18 08:56 12/20/18 11:55 12/20/18 12:20 Laboratory Results 12/20/18 12:30 12/20/18 05:31 12/19/18 12/20/18 12/21/18 05:59 05:59 05:59 Intake Total 1500 Output Total 300 Balance 1200 PT 13.3 SEC (12.0-15.0) 12/19/18 13:03 INR 0.99 (0.83-1.16) 12/19/18 13:03 - Physical Exam Constitutional: no apparent distress, appears nourished Eyes: PERRL, anicteric sclera Ears, Nose, Mouth, Throat: moist mucous membranes, hearing normal Cardiovascular: regular rate and rhythym, no murmur, rub, or gallop Respiratory: no respiratory distress, no rales or rhonchi Gastrointestinal: normoactive bowel sounds, soft, non-tender abdomen Genitourinary: no bladder fullness, No bustamante in urethra Skin: warm Musculoskeletal: full muscle strength Neurologic: AAOx3, CN II-XII Intact Psychiatric: interacting appropriately ICD10 Worksheet Patient Problems: Problems Problem Status Onset Headache Acute Left facial numbness Acute
--- NOTE | 2018-12-20 16:36 | PDMN ---
Medical Necessity Medical necessity: [facility] Neurology GR yo presents w/ L facial numbness and slurred speech - initially OBS as TIA vs. CVA neg. Neuro consult. Pt requires additional MN for additional dx testing and workup per neuro as still unknown etiology and pt will require PT, OT and WAREHOUSE ORDER SELECTOR tx, further dx testing, remain on cont tele monitoring. Pt not back to baseline and remains w/ facial numbness. Hx thoracic sortic aneurysm, HTN, asthma, ADHD, LIMA w/ CPAP, SIADH CKD. Change to IP status 12/20/18@1506 per MD order
[2018-12-20] MEDS ORDERED: POLYETHYLENE GLYCOL 3350 17 GM PKT PO PRN (17:56)
[2018-12-20] MEDS ORDERED: MAGNESIUM HYDROXIDE 30 ML UDCUP PO PRN (17:56)
[2018-12-20] MEDS ORDERED: LACTULOSE 20 GM/30 ML UDCUP PO PRN (17:56)
[2018-12-20] MEDS ORDERED: BISACODYL 10 MG SUPP PR PRN (17:56)
[2018-12-20] MEDS ORDERED: PSYLLIUM HUSK PO SCH (21:00)
[2018-12-20] MEDS ORDERED: GABAPENTIN 300 MG CAP PO SCH (21:00)
[2018-12-20] MEDS: SENNOSIDES/DOCUSATE SODIUM TAB PO SCH (21:00)
--- NOTE | 2018-12-20 23:23 | CPEKG ---
Test Reason : OPEN Blood Pressure : / mmHG Vent. Rate : 052 BPM Atrial Rate : 052 BPM P-R Int : 153 ms QRS Dur : 094 ms QT Int : 455 ms P-R-T Axes : 066 004 059 degrees QTc Int : 424 ms Sinus rhythm Borderline ST elevation, anterior leads Confirmed by Jonas Delcid ([id number]) on 12/20/2018 11:22:38 PM Referred By: Jonas Delcid Confirmed By:Jonas Delcid
[2018-12-21] MEDS: ACETAMINOPHEN 500 MG TAB PO SCH ×2 (05:07→10:11)
[2018-12-21 07:30] VITALS: BP 129/62
[2018-12-21] MEDS ORDERED: NON-FORMULARY NEW DRUG (Desvenlafaxine Succinate [Pristiq] 100 MG) PO SCH (09:00)
--- NOTE | 2018-12-21 09:11 | NEUROPROG ---
Assessment: The patient seems to be stable neurologically. She did not have elevation of sedimentation rate or CRP. Her she said her headache is down to 2/10 and there is still some trace numbness in the left lip. She feels a little bit weak in general but I feel that she is appropriate to try to discharge today if at all possible and no need for additional inpatient diagnostic studies that I can think of but I am happy to follow up with her as an outpatient as questions arise. Objective: Vital Signs Temp Pulse Resp BP Pulse Ox 36.4 C 61 16 129/62 H 94 12/21/18 05:03 12/21/18 07:29 12/21/18 07:29 12/21/18 07:29 12/21/18 07:29 Microbiology 12/20/18 15:41 Respiratory Panel (PCR) - Final Nasal, Sinus - Swab No Organism Detected By Pcr 12/20/18 12/21/18 12/22/18 05:59 05:59 05:59 Intake Total 700 Balance 700 PT 13.3 SEC (12.0-15.0) 12/19/18 13:03 INR 0.99 (0.83-1.16) 12/19/18 13:03 Allergies/Adverse Reactions: ciprofloxacin Allergy (Verified 12/19/18 19:30) diphenhydramine [From Benadryl] Allergy (Verified 12/19/18 19:30) fluoxetine [From Prozac] Allergy (Verified 12/19/18 12:53) Penicillins Allergy (Verified 12/19/18 12:53) envrionmental Allergy (Uncoded 12/03/18 14:03) narcotics Allergy (Uncoded 12/19/18 19:30)
--- NOTE | 2018-12-21 09:38 | HOSPPROG ---
Hospitalist Progress Note Assessment/Plan: 67 yo F w CVID, htn here w L facial numbness L facial numbness: uncertain etiology agree that not a neurovascular event inflammatory marker flat h/o remote ear surgery follow check resp viral panel no vesicular lesions to suggest HSV hypoxia: remarkable desat, questionable quality data cxr clear hasnt occurred since htn: continue meds anxiety: noted, follow likely contributing to current meds dispo: change to inpt Subjective: LIPSCOMB numbness improved. acknowledges anxiety. stable on RA Objective: Vital Signs Temp Pulse Resp BP Pulse Ox 36.4 C 61 16 129/62 H 94 12/21/18 05:03 12/21/18 07:29 12/21/18 07:29 12/21/18 07:29 12/21/18 07:29 Microbiology 12/20/18 15:41 Respiratory Panel (PCR) - Final Nasal, Sinus - Swab No Organism Detected By Pcr 12/20/18 12/21/18 12/22/18 05:59 05:59 05:59 Intake Total 700 Balance 700 PT 13.3 SEC (12.0-15.0) 12/19/18 13:03 INR 0.99 (0.83-1.16) 12/19/18 13:03 - Physical Exam Constitutional: no apparent distress, appears nourished Eyes: PERRL, anicteric sclera Ears, Nose, Mouth, Throat: moist mucous membranes, hearing normal, other (no lesions) Cardiovascular: regular rate and rhythym, no murmur, rub, or gallop Respiratory: no respiratory distress, no rales or rhonchi Gastrointestinal: normoactive bowel sounds, soft, non-tender abdomen Genitourinary: No bustamante in urethra Skin: warm, normal color Musculoskeletal: full muscle strength Neurologic: AAOx3 ICD10 Worksheet Patient Problems: Problems Problem Status Onset Headache Acute Left facial numbness Acute
--- NOTE | 2018-12-21 09:59 | GDS ---
[f rep st] DISCHARGE SUMMARY DISCHARGE DIAGNOSES: 1. Headache with facial numbness, not a neurovascular event. 2. Hypothyroidism. 3. Anxiety. 4. History of inner ear problems. 5. Thoracic aortic aneurysm. 6. Common variable immune deficiency who gets intravenous immunoglobulin. Please see admission history and physical by SCRATCH FINISHER, Chuyita Alejandra. Patient presented with this headache syn drome. She had a CTA of the head and neck and a brain MRI, all of which were unremarkable. Echocard iogram was performed and unremarkable. She was seen by Neurology who felt this did not represent a n eurovascular event. The patient was quite anxious and so was kept in the hospital overnight. The sy mptoms resolved. Additional workup for this facial numbness including a viral panel was unremarkable . Her inflammatory markers were flat and there were no vesicular lesions to suggest an HSV flare. S he had no meningeal signs. No fever. She was discharged home on unchanged medication regimen. /[id number]/MODL
[2018-12-21] MEDS: SENNOSIDES/DOCUSATE SODIUM TAB PO SCH (10:10)
[2018-12-21] MEDS: LOSARTAN POTASSIUM 25 MG TAB PO SCH (10:10)
[2018-12-21] MEDS: ENOXAPARIN 40 MG/0.4 ML SYR SC SCH (10:16)
--- NOTE | 2018-12-21 11:30 | ASDISCHSUM ---
Discharge Information Plan Status:Home with No Needs Medically Cleared to Leave:12/20/2018 Discharge Date:12/20/2018 CM D/C Disposition:Home, Routine, Self-Care ADT D/C Disposition: Projected Discharge Date:12/21/2018 12:00 AM Transportation at D/C:Friend Discharge Delay Reason: Follow-Up Date:12/21/2018 12:00 AM Discharge Slot:1 - 8:01 am - 12:00 noon Final Diagnosis:Thoracic aortic aneurysm Placement Information Patient Contact Information Contact Name:ARIANA Relationship: Address: Work Phone: City: [facility] Phone: [facility]/Zip Code: Email: Financial Information Financial Class:Medicare Primary Plan Desc:MEDICARE INPATIENT Primary Plan Number:[id number] Secondary Plan Desc:ANDREW/RAMIREZ SUPPLEMENT Secondary Plan Number:[id number] Assessment Information LACE LACE Length of stay for Answers: 1 day current admission Comorbidities - select Answers: Mild liver or renal all that apply disease Other Notes: HTN; Thoracic aortic aneurysm # of Emergency department Answers: 1-2 visits in the last 6 months Social determinants Answers: Mental health diagnosis (anxiety, depression, pers onality disorders, etc.) Score: 8 Date Signed: 12/21/2018 11:28 AM Electronically Signed By:Candi Lubin LCSW [facility] Initial CM Assessment Living Arrangements What is your living Answers: Alone arrangement? Who do you live with? Type Of Residence What kind of residence do Answers: Apartment you live in? 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 Patient has a hx of HTN, LIMA, thoracic AA and anxiety who presents with stroke-like symptoms of headache, slurred speech and confusion. Patient here on observation status currently. PT/OT/DELIVERY DEPARTMENT SUPERVISOR have been ordered. D/C plan TBD. CM will follow. Date Signed: 12/20/2018 12:41 PM Electronically Signed By:Candi Lubin LCSW Case Management Discharge Plan Note Case Management Discharge Discharge Order Complete? Answers: Yes Patient to Obtain Answers: Independently Medications Transportation Arranged Answers: Family/Friends Discharge Comments Notes: Patient is discharging home independently today. CM set up meals on wheels for patient who lives in [place]. No further needs. Date Signed: 12/21/2018 11:27 AM Electronically Signed By:Candi Lubin LCSW Intervention Information Intervention Type:*LANDIS-Signed Date of Service:12/20/2018 12:14 PM Patient Type:Observation Staff Member:Genia Tellez Hours: Discipline: Severity: Comment:
== END 2018-12-21 11:20 | disposition home or self-care (01) | DRG 92 ==
LOC: EDUNIT# → F2N 20:58 → OBSVTOIN 12-20 15:06
PROVIDERS: ADMIT Nurse Practitioner; ATTEND Internal Medicine
DX: R20.0 Anesthesia of skin (principal); R51 Headache; D83.9 Common variable immunodeficiency, unspecified; E22.2 Syndrome of inappropriate secretion of antidiuretic hormone; E03.9 Hypothyroidism, unspecified; F41.9 Anxiety disorder, unspecified; I71.2 Thoracic aortic aneurysm, without rupture; I12.9 Hypertensive chronic kidney disease with stage 1 through stage 4 chronic kidney disease, or unspecified chronic kidney disease; G47.33 Obstructive sleep apnea (adult) (pediatric); J45.909 Unspecified asthma, uncomplicated; N18.2 Chronic kidney disease, stage 2 (mild)
CPT/HCPCS: 82435-PO; 82565-PO; 82947-PO; 84132-PO; 84295-PO; 84520-PO; 85014-ER; 92523-GN; 92610-GN; 96374; 97116-GP; 97161-GP; 97165-GO; 97530-GO; 97535-GO; G0378; J1100; J1650; J1885; J2270; J2405; Q9967